=== PATIENT | female | born 1960 | race Caucasian/White ===

== ENCOUNTER 2020-05-25 20:23 | Inpatient (IN) | payer OTHER ==
[~2020-05-25] VITALS: Ht 165.1 cm; Wt 45.4 kg
--- NOTE | ~2020-05-25 | O ---
[facility] [place] [address] OPERATIVE REPORT Name: TOMAS ROE Room #: 457-P [facility] IN M.R.#: [id number] Admission: 05/25/20 Attend Phys: Vicente Stovall La Discharge: Date of : 64 Report #: [id number] THIS REPORT FOR: cc: [facility] - Clinic physician unknown [facility] - Clinic physician unknown Bakari Mittal MD ~ DATE OF SERVICE: 05/29/2020 PREOPERATIVE DIAGNOSIS: Left nasopharyngeal lesion. POSTOPERATIVE DIAGNOSIS: Left nasopharyngeal lesion. PROCEDURE PERFORMED: 1. Diagnostic nasal endoscopy. 2. Biopsy left nasopharyngeal lesion. 3. Direct laryngoscopy. PRIMARY SURGEON: Bakari Mittal M.D. ASSISTANTS: None. ANESTHESIA: General. COMPLICATIONS: None. ESTIMATED BLOOD LOSS: Approximately 2 mL. SPECIMEN: Left nasopharyngeal mass for frozen section analysis. INDICATIONS FOR THE PROCEDURE: The patient is a 60-year-old female admitted here to [facility] for acute exacerbation of COPD and shortness of breath. ENT was consulted when CT of her neck incidentally found left nasopharyngeal fullness. A consultation and bedside flexible nasal pharyngoscopy revealed fullness in the left nasopharynx and it was recommended that the patient undergo a diagnostic nasal endoscopy with biopsy of this lesion and a direct laryngoscopy for diagnosis. The patient consented to the above listed procedures. DESCRIPTION OF PROCEDURE: The patient was identified in the preoperative area before being transported to the operating room and placed supine on the operating table. At this point, general endotracheal anesthesia was induced and a timeout was called to ensure patient identity and procedure to be performed. Next, the bilateral nasal cavities were packed with Afrin-soaked cottonoid pledgets and allowed to sit for approximately 5 minutes time while the patient was prepped and draped in the normal fashion. The 30-degree endoscope was [address] [address] OPERATIVE REPORT Name: TOMAS ROE Room #: 457-P [facility] IN .R.#: [id number] Admission: 05/25/20 Attend Phys: Vicente Tovar Discharge: Date of : 64 Report #: [id number] inserted into the bilateral nasal cavities and the cottonoid pledgets were removed. Visualization of the left nasopharyngeal fullness was performed and photographs were taken. Next, using a curved cupped biopsy forceps, several compliance representative sections of the lesion were obtained and passed off for frozen section analysis. While this was being performed, the nasopharynx was packed with Afrin-soaked pledgets and a direct laryngoscopy was performed. A Dedo laryngoscope was inserted into the oral cavity and a thorough oral cavity oropharyngeal supraglottic, glottic and hypopharyngeal laryngoscopy was performed. There were no abnormal lesions and everything was normal in appearance. The direct laryngoscope was removed. At this time, the pathologist returned with the biopsy specimen results revealing them to be likely polypoid tissue with signs of chronic inflammation and no signs of any malignancy. Repeat endoscopy was performed. The cottonoid pledgets were all removed and confirmed to have counts correct. Followup photographs were taken and the procedure was then concluded. Please note that all instrument, sponge and needle counts were correct x2. DISPOSITION: The patient will go to the PACU and return to the floor under the care of the primary admitting team. She may resume all preoperative orders as previously ordered by the primary team and I will defer to the primary team's judgment on eventual discharge for this patient. Given that this is a benign pathology, there is no additional workup or treatment necessary and there is no followup as necessary for this patient as previously indicated in my consultation note. Unfortunately, the patient has [place] Medicaid, which is not currently taken in my office and therefore, if she does need Otolaryngology consultation or referral in the future, she will need to seek out a facility that is able to accept her on her [place] Medicaid. By: [id number] [id number] Bakari Mittal MD /nt
[~2020-05-25 20:23] MED LIST: ACETAMINOPHEN325 M1 PO; NICOTINE TRANSD21 M1 TD; ZOLOFT100 MG PO
[2020-05-25 20:25] VITALS: BP 124/78
[2020-05-25] MEDS ORDERED: SYMBICORT160 MCG/4. (20:33)
[2020-05-25] MEDS ORDERED: PROAIR HFA8.5 GM INH (20:33)
--- NOTE | 2020-05-25 20:36 | NUR ---
PRESENTLY LIVING IN A HOTEL WITH SON, DUE TO PIPES BREAKING AT HOME DURING COLD SPELL
[2020-05-25 20:38] LABS: ABSOLUTE NEUTROPHILS 2.6 thou/uL (1.4-8.2); BASOPHILS 1.1 % (0.0-2.0); EOSINOPHILS 19.9 % (0.0-3.0); HEMATOCRIT 40.8 % (37.0-47.0); HEMOGLOBIN 13.6 gm/dL (12.0-15.0); LYMPHOCYTES 32.4 % (24.0-44.0); MCH 31.4 pg (26.0-34.0); MCHC 33.4 g/dL (28.0-37.0); MCV 93.9 fL (80.0-100.0); MONOCYTES 9.2 % (1.0-8.0); PLATELET COUNT 264 thou/uL (150-400); POLYS 37.4 % (36.0-66.0); RBC 4.34 mil/uL (4.20-5.00); RDW 13.2 % (10.5-14.5)
[2020-05-25 20:48] LABS: ANION GAP 8 mmol/L (7-16); BUN 12 mg/dL (7-18); CALCIUM 8.4 mg/dL (8.5-10.1); CHLORIDE 103 mmol/L (98-107); CO2 30 mmol/L (21-32); CREATININE 0.6 mg/dL (0.6-1.0); GLUCOSE 132 mg/dL (74-106); POTASSIUM 3.5 mmol/L (3.5-5.1); SODIUM 141 mmol/L (136-145)
[2020-05-25 20:54] LABS: ALBUMIN 3.7 g/dL (3.4-5.0); DIRECT BILIRUBIN < 0.1 mg/dL (<0.1-0.2); LIPASE 70 U/L (73-393); SGOT 17 U/L (15-37); SGPT 21 U/L (14-59); TOTAL BILIRUBIN 0.2 mg/dL (0.2-1.0); TOTAL PROTEIN 7.1 g/dL (6.4-8.2)
[2020-05-25 21:16] LABS: BE(vivo) 2.4 mmol/L (-2 to +3); HCO3 28.4 mmol/L (22.0-26.0); PCO2 49.5 mmHg (35.0-45.0); PO2 122.9 mmHg (80.0-100.0); pH 7.377 (7.360-7.450); sO2 98.3 % (92.0-98.0)
[2020-05-25 22:51] VITALS: BP 111/72
[2020-05-25 23:49] VITALS: BP 107/65
[2020-05-26 02:32] LABS: URINE BILIRUBIN NEGATIVE (Negative); URINE BLOOD NEGATIVE (Negative); URINE CLARITY CLEAR; URINE COLOR YELLOW; URINE GLUCOSE-RANDOM* NEGATIVE (Negative); URINE KETONES NEGATIVE (Negative); URINE LEUKOCYTES-REFLEX NEGATIVE (Negative); URINE NITRITE-REFLEX NEGATIVE (Negative); URINE PROTEIN (DIPSTICK) NEGATIVE (Negative); URINE SPECIFIC GRAVITY 1.015 (1.005-1.035); URINE UROBILINOGEN 0.2 E.U./dl (0.2-1.0)
[2020-05-26 03:11] VITALS: BP 101/60
--- NOTE | 2020-05-26 03:26 | NUR ---
admit pt admitted to room 355 with a copd exacerbation and pui. pt stated she has been swabbed 7 times since february and all were negative. lung sounds are coarse crackles and wheezing throughout pt has a deep non-productive cough. reports weight loss d/t poor intake. voiding qs. iv to lf with ns@80cc/hr. ua sent to lab. contacted regarding covid swab she stated that pt has been swabbed 7 times since february and all were negative but to go ahead and swab her again. admission complete, consents signed. pt educated on room, call light system, fall risk and plan of care. tylenol given for a headache with effect pt sleeping after.
[2020-05-26 04:21] LABS: HEMATOCRIT 38.2 % (37.0-47.0); HEMOGLOBIN 12.7 gm/dL (12.0-15.0); MCH 31.2 pg (26.0-34.0); MCHC 33.1 g/dL (28.0-37.0); MCV 94.2 fL (80.0-100.0); RBC 4.06 mil/uL (4.20-5.00); RDW 13.4 % (10.5-14.5); WBC 2.6 thou/uL (4.0-11.0)
[2020-05-26 04:30] LABS: CALCIUM 8.1 mg/dL (8.5-10.1); CREATININE 0.7 mg/dL (0.6-1.0); POTASSIUM 4.2 mmol/L (3.5-5.1)
[2020-05-26 07:37] VITALS: BP 111/67
--- NOTE | 2020-05-26 13:10 | NUR ---
DR. HUTCHINSON PAGED AND INFORMED ABOUT DR. BUCKNER WANTING TO TOALK TO HIM. CASE MGT CONSULTED PER DR. DR. SITA KELLY ORDER.
[2020-05-26 15:31] VITALS: BP 107/63
[2020-05-26 20:16] VITALS: BP 111/67
--- NOTE | 2020-05-26 23:05 | NUR ---
REPORT CALLED TO NICHOLAS CARUOS ON 4W. PT TO BE TAKEN VIA BED TO ROOM 457.
[2020-05-26 23:20] VITALS: BP 111/86
[2020-05-27 05:16] LABS: ABSOLUTE NEUTROPHILS 4.9 thou/uL (1.4-8.2); BASOPHILS 0.2 % (0.0-2.0); HEMATOCRIT 36.2 % (37.0-47.0); HEMOGLOBIN 11.9 gm/dL (12.0-15.0); LYMPHOCYTES 14.8 % (24.0-44.0); MCH 31.4 pg (26.0-34.0); MCHC 32.8 g/dL (28.0-37.0); MCV 95.7 fL (80.0-100.0); MONOCYTES 3.5 % (1.0-8.0); PLATELET COUNT 220 thou/uL (150-400); POLYS 81.5 % (36.0-66.0); RBC 3.78 mil/uL (4.20-5.00); RDW 13.4 % (10.5-14.5)
--- NOTE | 2020-05-27 06:15 | NUR ---
ASSUME CARE 2300 FROM 3W. PT/VITALSS STABLE. INTERMITTENT HEADACHE NOTED. TOLERATES ACTIVITY WELL. ASSESSMENT CHARTED. PROGRESSING WELL WITH POC. PLAN IS TO CONTINUE WITH ABX AND STEROID THERAPY FOR COPD EXACERBATION. ADEQUATE REST NOTED. NO DISTRESS. WILL CONTINUE TO MONITOR AND FOLLOW WITH POC
--- NOTE | 2020-05-27 07:37 | EKG ---
[place] [address] [facility] [place] [address] ELECTROCARDIOGRAM REPORT Name: TOMAS ROE Room #: 457-P ADM IN M.R.#: [id number] Admission: 05/25/20 Attend Phys: Gabriela Boland MD Discharge: Date of : 64 Report #: [id number] 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 : 1960 Requested By: Gabriela Boland Order Number: [id number] : Mahad Melton Measurements Intervals [place] Rate: 97 P: 88 OR: 146 QRS: 92 QRSD: 97 T: 16 QT: 361 QTc: 459 Interpretive Statements Sinus rhythm Biatrial enlargement Borderline right axis deviation Abnormal R-wave progression, late transition Left ventricular hypertrophy Artifact in lead(s) I,II,III,aVR,aVL,aVF,V1,V6 No previous ECG available for comparison Electronically Signed On 05-27-2020 7:37:48 AIRCRAFT TIME CLERK by Mahad Melton [email or web address] <ELECTRONICALLY SIGNED> By: Mahad Melton MD, FAC 05/27/20 0737 28 28 Mahad Melton MD, [facility] /EPI
[2020-05-27 08:48] VITALS: BP 111/76
--- NOTE | 2020-05-27 11:56 | NUR ---
PT ADMITTED RELATED TO COPD EXACERBATIO/PUI. CM REVIEWED CHART AND SPOKE WITH CARE TEAM. CM CALLED AND SPOKE WITH PT OVER THE PHONE THIS DAY. PT APPEARED TO BE A&O X4. CM ROLE INTORDUCED. PT INDICATED THAT SHE HAD BEEN STAYING AT THE [facility] OFF [address] SINCE SHE HAD BEEN EVICTED DURING LAST GOLD SPELL DUE TO BURST PIPES. 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 PT INDICATED SHE HAS HOME O2 A CONCENTRATOR AND A PORTABLE TANK THROUGH [facility] OUT [facility] [place] . PT INDICATED THAT UPON DC SHE PLANS TO GO STAY AT HER DTR YOIG SWANN'S HOUSE. PT INDICATED SHE WILL NEED TRANSPORT BACK TO THE [facility] TO COLLECT HER BELONGINGS SHE CAME VIA AMBULANCE. PT TO HAVE PROCEDURE DONE BY ENT Wednesday05/29/20. CM FOLLOWING REGARDING DC PLANNING.
[2020-05-27 19:29] VITALS: BP 134/69
--- NOTE | 2020-05-28 04:44 | NUR ---
Pt. rested quietly during the night when checked on during frequent rounds. She c/o pain to her right rib cage area and po tylenol given (see emar) with some relief noted. No c/o increased shortness of air.
[2020-05-28 07:41] VITALS: BP 115/57
--- NOTE | 2020-05-28 15:17 | NUR ---
PT IS TO HAVE ENT PROCEDURE TOMORROW. CM CALLED AND SPOKE WITH HER DTR YOGI SWANN THIS DAY. SHE CONFIRMED THAT PLAN IS FOR PT TO GET TRANSPORT BACK TO [facility] AND COLLECT HER BELONGS AND GO TO DTR'S HOUSE. DTR RESIDES AT [address] [place] [address]. CM CALLED [facility] AND NOTIFIED THEM. THEY STATED THAT ORDERS COULD BE SENT TO THEM UPON DC. CM TO FOLLOW INDICATED WITH DC PLANNING.
[2020-05-28 16:16] VITALS: BP 119/74
--- NOTE | 2020-05-28 16:45 | NUR ---
05/28/20 ASSUMED PATIENT CARE AT 0700. PATIENT IS STABLE, AWAITING SINUS SURGERY ON 05/29/20. PATIENT TREATED WITH PRN'S FOR RIB PAIN, SEE MAR FOR DOCUMENTATION. PATIENT WILL BE NPO AT 0000 IN PREPERATION FOR SURGERY TOMORROW. PATIENT PROGRESSING TOWARDS GOALS OF CARE. WILL CONTINUE TO MONITOR.
[2020-05-28 19:23] VITALS: BP 131/75
--- NOTE | 2020-05-29 02:34 | NUR ---
PT IS A/O X4 AND IS UP WITH ASSISTANCE TO THE BSC OR BR. REMAINS ON 2 LITERS OF O2 NC. SOB WITH EXERTION. CONTINUES ON SCHEDULED BRTX. EXPRESSED FEELINGS OF ANXIETY ABOUT PROCEDURE IN THE AM AND REQUESTED AN AMBIEN WITH HS MEDICATION. PROVIDED DIRECTED PER PT REQUEST. REFUSED 0000 COUGH MEDICATION STATING SHE DIDN'T NEED IT. C/O PAIN. PRN PAIN MEDICATION GIVEN DIRECTED. 4 UNITS OF HS INSULIN GIVEN FOR ELEVATED BS. AT THIS TIME, PT IS LYING IN HER BED AND APPEARS TO BE SLEEPING. NPO SINCE MIDNIGHT AWAITING PROCEDURE. SPOKE WITH DAUGHTER YOGI WHO HAS REQUESTED AN UPDATE IN THE AM AFTER SURGERY BY THE PTS DAY SHIFT NURSE FOLLOWING SURGERY . WILL ENDORSE THIS IN REPORT. FALL PRECAUTIONS IN PLACE, CALL LIGHT IS WITHIN REACH. WILL CONTINUE TO MONITOR.
[2020-05-29 07:55] VITALS: BP 126/82
[2020-05-29 08:00] VITALS: BP 130/73
[2020-05-29 10:00] VITALS: BP 132/81
[2020-05-29 12:30] VITALS: BP 119/71
--- NOTE | 2020-05-29 13:51 | NUR ---
PT RESTING COMFORTABLY. WENT TO OR TODAY AT APPROX 0910 AND CAME BACK TO 4W AT APPROX 1245. PT HAD A DIAGNOSTIC NASAL ENDOSCOPY BIOPSY OF THE LEFT NASOPHARYNGEAL LESION. PT CAME BACK TO THE FLOOR WITH NO DRESSING AND NO POST-OP INSTURCTIONS. PT AFEBRILE, ADEQUATE UOP, NO BM, APPROPRIATE APPETITE. PT AND DAUGHTER HAVE BEEN UPDATED AND EDUCATED ON PT CONDITION AND POC. PT PROGRESSING TOWARDS POC.
[2020-05-29 15:35] VITALS: BP 112/70
--- NOTE | 2020-05-29 15:43 | NUR ---
PT HAD ENT PROCEDURE THIS DAY. CM FOLLOWED UP WITH PT'S DTR CRYSTAL THIS AFTERNOON. CM INDICATED THAT CM HAD SPOKEN WITH [facility] PT' O2 PROVIDER AND GAVE THEM DTR'S ADDRESS. DTR INDICATED THAT SHE WAS INTERESTED IN SEEING IF PT WANTED TO COMPLETE MEDICAL DPOA. CM TO SPEAK WITH PT AND NOTIFY LISA IF INDICATED. PT WILL [facility] GET [facility]AL [facility]ONG[facility] AND THEN GO TO DTR'S HOUSE. CM TO FOLLOW INDICATED WITH DC PLANNING.
[2020-05-29 20:00] VITALS: BP 107/67
--- NOTE | 2020-05-30 00:06 | NUR ---
ASSESSMENT COMPLETED. PT IS ALERT AND ORIENTED. UP AD CECILIO.ON / PER HOME BASELINE. DENIES SOA. PAIN MEDS GIVEN FOR RIGHT RIBS PAIN. DENIES ANY GI OR DISCOMFORT. WILL CONTINUE WITH POC TILL EOS.
--- NOTE | 2020-05-30 06:55 | EKG ---
[place] [address] [facility] [place] [address] ELECTROCARDIOGRAM REPORT Name: TOMAS ROE Room #: 457-P ADM IN M.R.#: [id number] Admission: 05/25/20 Attend Phys: Vicente Tovar Discharge: Date of : 64 Report #: [id number] [facility] Test Date: 2020-05-29 Test Time: 12:01:02 Pat Name: TOMAS ROE Department: Room: 457 Gender: F Nurse Special: FAITH : 1960 Requested By: Veda Coello Order Number: [id number] MD: Mahad Melton Measurements Intervals [place] Rate: 65 P: 77 VT: 164 QRS: 84 QRSD: 88 T: 60 QT: 397 QTc: 413 Interpretive Statements Sinus rhythm Probable left atrial enlargement Abnormal R-wave progression, late transition Minimal ST elevation, anterior leads Baseline wander in lead(s) V4 Compared to ECG 05/25/2020 20:29:39 ST (T wave) deviation now present Left ventricular hypertrophy no longer present Electronically Signed On 05-30-2020 6:55:26 MIDDLEWARE SYSTEMS ARCHITECT by Mahad Melton [email or web address] <ELECTRONICALLY SIGNED> By: Mahad Melton MD, FAC 05/30/20 0655 1201 1201 Mahad Melton MD, [facility] /EPI
[2020-05-30] MEDS ORDERED: DOXYCYCLINE HYC50 MG PO (08:21)
[2020-05-30] MEDS ORDERED: PREDNISONE 5 MG5 M1 PO (08:22)
[2020-05-30 08:28] VITALS: BP 128/78
[2020-05-30 10:20] VITALS: BP 128/78
[2020-05-30 11:26] VITALS: BP 128/78
--- NOTE | 2020-05-30 11:29 | NUR ---
FAXED REFERRAL TO [facility] SPOKE WITH [facility]LEN[facility] IN INTAKE THEY CAN ACCEPT. PT DISCHARGING TODAY FAXED DC ORDERS/SUMMARY RECEIVED ELSI AND THEY WILL CALL TO ARRANGE VISITS.
--- NOTE | 2020-05-30 12:12 | NUR ---
CARE TEAM INDICATED THAT PT IS MEDICALLY STABLE TO DC HOME THIS DAY. PHYSICIAN ORDERD HOME HEALTH SERVICES UPON DC. [place] [facility] CAN ONLY HAVE HH NURSING. PT WAS AGREEABLE WITH REFERRAL BEING SENT TO [facility] HH THEY WERE GIVEN PT'S DTR'S ADDRESS WHERE SHE WILL BE GOING IN THE NEXT DAY OR TWO. THEY ARE ABLE TO ACCEPT PT. PT NEEDS TRANSPORT BACK TO [facility]. CM ARRANGED [facility] WITH 2L O2. CM TO PROVIDE PT WITH SOME CLOTHES TO WEAR HOME. NO OTHER CM INTERVENTION INDICATED. CASE CLOSED.
[2020-05-30 14:56] VITALS: BP 128/78
[2020-05-30 16:20] VITALS: BP 128/78
--- NOTE | 2020-05-31 08:58 | PATH ---
[facility] [address] PATHOLOGY RPT PROCEDURE Name: TOMAS ROE Room #: 457-P DIS IN M.R.#: [id number] Admission: 05/25/20 Date of : 64 Discharge: 05/30/20 Report #: [id number] Path Case #: [id number] [facility] Accession Number: [id number] . 01 Material submitted: . nasopharynx - NASOPHARYNGEAL LESION BIOPSY FS . 01 Clinician provided ICD-10: 977850 . 01 Clinical history: . NASOPHARYNGEAL MASS . 02 Frozen section diagnosis: . FROZEN SECTION DIAGNOSIS (Dr. Lorenza Cohen) . FSA1. Nasopharyngeal lesion, biopsy: - Polypoid fragments lined by columnar epithelium with dense chronic inflammation. . These findings are discussed with Dr. Mittal in OR-6 at [facility]. A written report is placed in the patient's chart. . . FROZEN SECTION GROSS DESCRIPTION Specimen is received fresh from the OR labeled with the patient's name, and "nasopharyngeal lesion biopsy for frozen section", consists of a polypoid red-barber fragment of tissue measuring approximately 1.2 x 0.5 x 0.2 cm. Submitted entirely for frozen section as FSA1, subsequently submitted for permanent sections as A1. (IUV:production service manager; 05/29/2020) . Frozen section performed at [facility], [address], [place] [address]. IZToñito/SONIYA . 02 Diagnosis: Nasopharyngeal lesion, biopsy: - Fragments lined by ciliated columnar epithelium with focal squamous metaplasia in close association with lymphoid tissue, compatible with adenoids/tonsil tissue. - Reactive changes along with inflammation. - Negative for dysplasia or malignancy. (IUV:rita; 05/30/2020) QMS 05/30/2020 1237 Local . [address] [address] PATHOLOGY RPT PROCEDURE Name: TOMAS ROE Room #: 457-P DIS IN M.R.#: [id number] Admission: 05/25/20 Date of : 64 Discharge: 05/30/20 Report #: [id number] Path Case #: [id number] Electronically signed: . Lorenza Cohen MD, Pathologist NPI- [id number] . 03 Gross description: . PLEASE SEE GROSS DESCRIPTION UNDER FROZEN SECTION DIAGNOSIS. /MBR 05/29/2020 1232 Local . 02 Pathologist provided ICD-10: J34.89 . 02 CPT . 843230, 191576 Specimen Comment: A duplicate report has been generated due to demographic updates. Performed at: [address], [place], [place] [id number] MD Johnnie Howard MD Phone: [phone] Performed at: [address] [id number] MD Lorenza Cohen MD Phone: [phone] Performed at: [address], [place], [place] [id number] MD Marco A Zabala MD Phone: [phone]
== END 2020-05-30 16:38 | disposition home health service (06) | DRG 189 ==
LOC: ER 20:23 → EROBS 22:09 → 4W 22:09 → 3W 23:15 → 4W 05-26 23:23
PROVIDERS: Internal Medicine; Internal Medicine Pulmonary Disease; Nurse Practitioner; ADMIT Hospitalist; ATTEND Hospitalist
PROC: 0CBM8ZX Excision of Pharynx, Via Natural or Artificial Opening Endoscopic, Diagnostic (ICD-10-PCS; principal; 2020-05-29)
DX: J96.21 Acute and chronic respiratory failure with hypoxia (principal); J44.1 Chronic obstructive pulmonary disease with (acute) exacerbation; E44.0 Moderate protein-calorie malnutrition; Z68.1 Body mass index [BMI] 19.9 or less, adult; J96.22 Acute and chronic respiratory failure with hypercapnia; D72.10 Eosinophilia, unspecified; Z20.822 Contact with and (suspected) exposure to COVID-19; R63.4 Abnormal weight loss; R91.1 Solitary pulmonary nodule; M54.2 Cervicalgia; Z90.710 Acquired absence of both cervix and uterus; Z87.891 Personal history of nicotine dependence; Z99.81 Dependence on supplemental oxygen; Z28.21 Immunization not carried out because of patient refusal
CPT/HCPCS: 10047; 10779; 10879; 50010; 50101; 50286; 50386; 50398; 56635; 62110; 62900; 70005